=== PATIENT | female | born 1950 | race Caucasian/White ===

== ENCOUNTER 2017-07-02 14:01 | Observation (INO) | payer OTHER ==
[~2017-07-02] VITALS: Ht 165.1 cm; Wt 80.5 kg
[2017-07-02 14:47] LABS: BASOPHIL % 0.5 % (0-2); PLATELET COUNT 246 x10^3mcL (130-400); RED CELL DISTRIBUTION WIDTH 12.6 % (11.5-14.5)
[2017-07-02 14:53] LABS: CALCIUM 8.9 mg/dL (8.5-10.1); CARBON DIOXIDE 30.9 mmol/L (21-32); CHLORIDE SERUM 106 mmol/L (98-107); CREATININE SERUM 0.6 mg/dL (0.6-1.0); GFR1 > 60 mL/min; GLUCOSE SERUM 98 mg/dL (74-106); POTASSIUM SERUM 3.9 mmol/L (3.5-5.1); SODIUM SERUM 142 mmol/L (136-145)
[2017-07-02 15:10] LABS: UA SPECIFIC GRAVITY 1.025 (1.005-1.035); microscopic required? YES; urine erythrocyte 1+ (NEGATIVE)
[2017-07-02 16:28] VITALS: BP 136/66
[2017-07-02 16:28] LABS: T3 TOTAL 1.1 ng/mL
[2017-07-02] MEDS ORDERED: GLIMEPIRIDE1 M1 PO (16:28)
[2017-07-02] MEDS ORDERED: PROTONIX40 MG PO (16:29)
[2017-07-02 16:57] LABS: FREE T4 0.95 ng/dL (0.76-1.46); FREE THYROXINE INDEX 2.7 ug/dL (1.4-4.5); T4(THYROXINE) 7.4 ug/dL (4.7-13.3)
[2017-07-02 17:36] LABS: MAGNESIUM 2.2 mg/dL (1.8-2.4); PHOSPHOROUS 3.7 mg/dL (2.5-4.9)
[2017-07-02 17:37] LABS: CHOLESTEROL/HDL RATIO 3.8
[2017-07-02 19:00] VITALS: BP 128/67
[2017-07-02 20:52] VITALS: BP 110/44
[2017-07-03 05:34] LABS: BASOPHIL % 0.6 % (0-2); PLATELET COUNT 196 x10^3mcL (130-400); RED CELL DISTRIBUTION WIDTH 12.2 % (11.5-14.5)
[2017-07-03 05:55] LABS: CALCIUM 8.3 mg/dL (8.5-10.1); CARBON DIOXIDE 27.5 mmol/L (21-32); CHLORIDE SERUM 105 mmol/L (98-107); CREATININE SERUM 0.7 mg/dL (0.6-1.0); GFR1 > 60 mL/min; GLUCOSE SERUM 99 mg/dL (74-106); POTASSIUM SERUM 4.1 mmol/L (3.5-5.1); SODIUM SERUM 139 mmol/L (136-145)
[2017-07-03 05:56] VITALS: BP 111/54
[2017-07-03 08:50] VITALS: BP 108/54
[2017-07-03] MEDS ORDERED: PROTONIX40 MG PO (10:58)
[2017-07-03] MEDS ORDERED: ECO81 PO (10:59)
[2017-07-03] MEDS ORDERED: LIPI10 PO (10:59)
[2017-07-03] MEDS ORDERED: METOPROLOL TART25 M1 PO (10:59)
[2017-07-03] MEDS ORDERED: DUL5 PO (11:01)
[2017-07-03] MEDS ORDERED: NAPROXEN SODIU550 MG PO (11:02)
[2017-07-03] MEDS ORDERED: METFORMIN HCL850 MG PO (11:04)
[2017-07-03] MEDS ORDERED: MAC100 PO (11:42)
[2017-07-03 12:39] VITALS: BP 108/54
== END 2017-07-03 13:37 | disposition home or self-care (01) | DRG 205 ==
LOC: ED 14:01 → DU 15:29
PROVIDERS: Emergency Medicine; ADMIT Family Medicine
DX: M94.0 Chondrocostal junction syndrome [Tietze] (principal); N17.0 Acute kidney failure with tubular necrosis; N39.0 Urinary tract infection, site not specified; K21.9 Gastro-esophageal reflux disease without esophagitis; R31.9 Hematuria, unspecified; E03.9 Hypothyroidism, unspecified; Z85.3 Personal history of malignant neoplasm of breast; Z90.11 Acquired absence of right breast and nipple; Z79.84 Long term (current) use of oral hypoglycemic drugs; Z68.29 Body mass index [BMI] 29.0-29.9, adult
CPT/HCPCS: 82962; 83880; 84439; G0378; J0696; J1885; J7030; Q0092

== ENCOUNTER 2017-10-16 18:19 | Inpatient (IN) | payer OTHER ==
[~2017-10-16] VITALS: Ht 165.1 cm; Wt 77.6 kg
[~2017-10-16 18:19] MED LIST: DUL5 PO; ECO81 PO; GLIMEPIRIDE1 M1 PO; LIPI10 PO; MAC100 PO; METFORMIN HCL850 MG PO; METOPROLOL TART25 M1 PO; NAPROXEN SODIU550 MG PO; PROTONIX40 MG PO
[2017-10-16 20:09] VITALS: Ht 165.1 cm; Wt 77.6 kg
[2017-10-17 02:46] LABS: BASOPHIL % 0.6 % (0-2); PLATELET COUNT 285 x10^3mcL (130-400)
[2017-10-17 02:49] LABS: RED CELL DISTRIBUTION WIDTH 11.4 % (11.5-14.5)
[2017-10-17 02:59] LABS: CHLORIDE SERUM 97 mmol/L (98-107); CREATININE SERUM 0.7 mg/dL (0.6-1.0); GFR1 > 60 mL/min; POTASSIUM SERUM 4.1 mmol/L (3.5-5.1); SODIUM SERUM 134 mmol/L (136-145)
[2017-10-17 03:21] LABS: ALBUMIN 3.8 g/dL (3.4-5.0); ALKALINE PHOSPHATASE 100 U/L (46-116); ALT/SGPT 20 U/L (14-59); AMYLASE 31 U/L (25-115); AST/SGOT 11 U/L (15-37); BILIRUBIN TOTAL 1.39 mg/dL (0.20-1.00); CALCIUM 9.3 mg/dL (8.5-10.1); CARBON DIOXIDE 27.5 mmol/L (21-32); GLUCOSE SERUM 190 mg/dL (74-106); LIPASE 154 IU/L (73-393)
[2017-10-17 09:38] LABS: MAGNESIUM 1.9 mg/dL (1.8-2.4); PHOSPHOROUS 3.2 mg/dL (2.5-4.9)
[2017-10-17 09:43] LABS: T3 TOTAL 0.9 ng/mL
[2017-10-17 09:59] LABS: FREE T4 1.08 ng/dL (0.76-1.46); T4(THYROXINE) 8.7 ug/dL (4.7-13.3)
[2017-10-17 13:00] VITALS: BP 130/59
[2017-10-17 16:35] VITALS: BP 132/68
[2017-10-17 17:37] VITALS: BP 98/54
[2017-10-17 18:31] LABS: UA SPECIFIC GRAVITY 1.015 (1.005-1.035); microscopic required? YES; urine erythrocyte 1+ (NEGATIVE)
[2017-10-17 18:51] LABS: AMPHETAMINE QUAL UR NONE DETECTED (NEG <=1000)
[2017-10-17 21:41] VITALS: BP 101/55
[2017-10-18 06:11] VITALS: BP 105/55
[2017-10-18 09:38] VITALS: BP 101/50
[2017-10-18 17:10] VITALS: BP 109/54
[2017-10-18 21:27] VITALS: BP 115/68
[2017-10-19 06:30] VITALS: BP 97/62
[2017-10-19 07:24] LABS: BASOPHIL % 0.1 % (0-2); PLATELET COUNT 217 x10^3mcL (130-400); RED CELL DISTRIBUTION WIDTH 12.1 % (11.5-14.5)
[2017-10-19 07:51] LABS: CALCIUM 8.3 mg/dL (8.5-10.1); CARBON DIOXIDE 26.7 mmol/L (21-32); CHLORIDE SERUM 102 mmol/L (98-107); CREATININE SERUM 0.7 mg/dL (0.6-1.0); GFR1 > 60 mL/min; GLUCOSE SERUM 115 mg/dL (74-106); MAGNESIUM 2.3 mg/dL (1.8-2.4); PHOSPHOROUS 3.1 mg/dL (2.5-4.9); POTASSIUM SERUM 3.8 mmol/L (3.5-5.1); SODIUM SERUM 136 mmol/L (136-145)
[2017-10-19 10:07] VITALS: BP 115/63
[2017-10-19 18:07] VITALS: BP 110/55
[2017-10-19 21:08] VITALS: BP 100/54
[2017-10-20 05:30] VITALS: BP 122/72
[2017-10-20 06:36] LABS: BASOPHIL % 0.4 % (0-2); PLATELET COUNT 217 x10^3mcL (130-400); RED CELL DISTRIBUTION WIDTH 12.1 % (11.5-14.5)
[2017-10-20 06:56] LABS: CALCIUM 8.2 mg/dL (8.5-10.1); CARBON DIOXIDE 26.8 mmol/L (21-32); CHLORIDE SERUM 104 mmol/L (98-107); CREATININE SERUM 0.7 mg/dL (0.6-1.0); GFR1 > 60 mL/min; GLUCOSE SERUM 94 mg/dL (74-106); MAGNESIUM 2.1 mg/dL (1.8-2.4); PHOSPHOROUS 2.6 mg/dL (2.5-4.9); POTASSIUM SERUM 3.5 mmol/L (3.5-5.1); SODIUM SERUM 138 mmol/L (136-145)
[2017-10-20 09:00] VITALS: BP 129/36
[2017-10-20] MEDS ORDERED: ZES5 PO (10:34)
[2017-10-20] MEDS ORDERED: KEFLEX500 M1 PO (10:35)
[2017-10-20] MEDS ORDERED: LAC PO (10:35)
[2017-10-20] MEDS ORDERED: ACETAMINOPHEN-H1 TA1 PO (10:36)
[2017-10-20 13:28] VITALS: BP 109/62
== END 2017-10-20 14:30 | disposition home or self-care (01) | DRG 419 ==
LOC: ED 18:19 → DU 10-17 07:39 → MU 10-17 07:39 → DU 10-17 12:57 → MU 10-18 12:31
PROVIDERS: Student in an Organized Health Care Education/Training Program; Surgery
PROC: 0FT44ZZ Resection of Gallbladder, Percutaneous Endoscopic Approach (ICD-10-PCS; principal; 2017-10-18 12:00)
DX: K80.00 Calculus of gallbladder with acute cholecystitis without obstruction (principal); Z79.82 Long term (current) use of aspirin; E11.65 Type 2 diabetes mellitus with hyperglycemia; Z91.19 Patient's noncompliance with other medical treatment and regimen; E78.2 Mixed hyperlipidemia; N28.1 Cyst of kidney, acquired
CPT/HCPCS: 82962; 83880; 84439; 85378; 94150; J0330; J0690; J1885; J2175; J2250; J2270; J2405; J2543; J2704; J2710; J3010; J3490; J7030; J7042; Q0092; Q9967

== ENCOUNTER 2020-07-15 09:20 | Emergency (ER) | payer MEDICAID ==
[~2020-07-15] VITALS: Ht 165.1 cm; Wt 77.1 kg
[~2020-07-15 09:20] MED LIST changes: +ACETAMINOPHEN-H1 TA1 PO; +KEFLEX500 M1 PO; +LAC PO; +ZES5 PO
[2020-07-15 09:27] VITALS: BP 129/70; Ht 165.1 cm; Wt 77.1 kg
== END 2020-07-15 11:18 | disposition home or self-care (01) ==
LOC: ED 09:20
DX: L50.1 Idiopathic urticaria (principal); E11.9 Type 2 diabetes mellitus without complications